=== PATIENT | male | born 1995 | race Caucasian/White ===

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

== ENCOUNTER 2017-01-13 11:57 | Observation (INO) | payer MEDICAID ==
[2017-01-13] MEDS ORDERED: NORMAL SALINE 1000 ML 1,000 ML IV ONE (12:27)
--- NOTE | 2017-01-13 12:28 | ER Document Report ---
ED Medical Screen (RME) - General Chief Complaint: Abscess Stated Complaint: POSSIBLE ABSCESS Time Seen by Provider: 01/13/17 12:24 Notes: Patient was sent from primary care physician's office for surgical consult. Per parents and patient he has a mass in the rectal area that is leaking pus. He is also had diarrhea and abdominal pain. He is also had generalized weakness and malaise. TRAVEL OUTSIDE OF THE [place] IN LAST 30 DAYS: No - Related Data Allergies/Adverse Reactions: No Known Allergies Allergy (Verified 01/13/17 12:26) Past Medical History - Past Medical History Cardiac Medical History: Denies: Hx Coronary Artery Disease, Hx Heart Attack, Hx Hypertension Pulmonary Medical History: Denies: Hx Asthma, Hx Bronchitis, Hx COPD, Hx Pneumonia Neurological Medical History: Denies: Hx Cerebrovascular Accident, Hx Seizures Renal/ Medical History: Denies: Hx Peritoneal Dialysis Musculoskeltal Medical History: Denies Hx Arthritis, Reports Hx Musculoskeletal Trauma - fractured clavicle 12/06/16 Traumatic Medical History: Reports: Hx Fractures - fractured clavicle 12/06/16 - Immunizations Immunizations up to date: Yes Hx Diphtheria, Pertussis, Tetanus Vaccination: Yes History of Influenza Vaccine for 12/2016 - 05/2017 Season: Yes Influenza Administration Date for 12/2016 - 05/2017 Season: 11/12/16 Physical Exam - Vital signs Vitals: Temp Pulse Resp BP Pulse Ox 98.3 F 120 H 20 128/81 H 97 01/13/17 12:09 01/13/17 12:09 01/13/17 12:09 01/13/17 12:09 01/13/17 12:09 Course - Vital Signs Vital signs: Temp Pulse Resp BP Pulse Ox 98.3 F 120 H 20 128/81 H 97 01/13/17 12:09 01/13/17 12:09 01/13/17 12:09 01/13/17 12:09 01/13/17 12:09
[2017-01-13 13:25] LABS: VENOUS BLOOD BASE EXCESS 0.8 mmol/L; VENOUS BLOOD HCO3 26.7 mmol/L (20-32); VENOUS BLOOD PCO2 46.5 mmHg (35-63); VENOUS BLOOD PH 7.38 (7.30-7.42)
[2017-01-13 13:29] LABS: ABSOLUTE BASOPHILS # (AUTO) 0.1 10^3/uL (0.0-0.2); ABSOLUTE EOSINOPHILS # (AUTO) 0.1 10^3/uL (0.0-0.6); ABSOLUTE LYMPHOCYTES (AUTO) 1.5 10^3/uL (0.5-4.7); ABSOLUTE MONOCYTES (AUTO) 1.7 10^3/uL (0.1-1.4); ABSOLUTE NEUT (AUTO) 12.6 10^3/uL (1.7-8.2); BASOPHILS % (AUTO) 0.4 % (0-2); EOSINOPHILS % (AUTO) 0.5 % (0-6); HEMATOCRIT 38.5 % (37.9-51.0); HEMOGLOBIN 12.8 g/dL (13.5-17.0); HGB HCT DIFFERENCE -0.1; LYMPHOCYTES % (AUTO) 9.4 % (13-45); MEAN CORPUSCULAR HEMOGLOBIN 25.2 pg (27.0-33.4); MEAN CORPUSCULAR HGB CONC 33.3 g/dL (32.0-36.0); MEAN CORPUSCULAR VOLUME 76 fl (80-97); MONOCYTES % (AUTO) 10.6 % (3-13); RED CELL DISTRIBUTION WIDTH 13.8 % (11.5-14.0); SEGMENTED NEUTROPHILS % (AUTO) 79.1 % (42-78); WHITE BLOOD COUNT 15.9 10^3/uL (4.0-10.5)
[2017-01-13] MEDS ORDERED: VANCOMYCIN HCL INJ 1000 MG VIAL IV ONE (13:30)
[2017-01-13] MEDS ORDERED: HYDROMORPHONE HCL INJ/PF 2 MG/ML AMPULE IV ONE (13:30)
[2017-01-13] MEDS ORDERED: PIPERACILLIN/TAZOBACTAM 4.5 GM VIAL IV ONE (13:30)
[2017-01-13] MEDS ORDERED: NORMAL SALINE 1000 ML 1,000 ML IV PRN (13:30)
--- NOTE | 2017-01-13 13:31 | ER Document Report ---
ED General - General Chief Complaint: Abscess Stated Complaint: POSSIBLE ABSCESS Time Seen by Provider: 01/13/17 12:24 Mode of Arrival: Ambulatory Information source: Patient Notes: 21-year-old male presents with 3-4 day duration of rectal pain. Patient was seen by primary care physician noted to have large amount drainage and was sent in for evaluation. Patient denies any fevers admits to decreased oral intake TRAVEL OUTSIDE OF THE [place] IN LAST 30 DAYS: No - HPI Onset: Last week Onset/Duration: Persistent Quality of pain: Achy Severity: Mild Pain Level: 1 Associated symptoms: None Exacerbated by: Denies Relieved by: Denies Similar symptoms previously: No Recently seen / treated by doctor: No - Related Data Allergies/Adverse Reactions: No Known Allergies Allergy (Verified 01/13/17 12:26) Home Medications: Current Home Medications No Home Medications 01/13/17 [History] Past Medical History - Social History Smoking Status: Never Smoker Cigarette use (# per day): No Chew tobacco use (# tins/day): No Smoking Education Provided: No Family History: Arthritis, CAD, COPD, DM, Hyperlipidemia, Hypertension, Malignancy. denies: CVA, Thyroid Disfunction Patient has suicidal ideation: No Patient has homicidal ideation: No - Past Medical History Cardiac Medical History: Denies: Hx Coronary Artery Disease, Hx Heart Attack, Hx Hypertension Pulmonary Medical History: Denies: Hx Asthma, Hx Bronchitis, Hx COPD, Hx Pneumonia Neurological Medical History: Denies: Hx Cerebrovascular Accident, Hx Seizures Renal/ Medical History: Denies: Hx Peritoneal Dialysis Musculoskeltal Medical History: Denies Hx Arthritis, Reports Hx Musculoskeletal Trauma - fractured clavicle 12/06/16 Traumatic Medical History: Reports: Hx Fractures - fractured clavicle 12/06/16 - Immunizations Immunizations up to date: Yes Hx Diphtheria, Pertussis, Tetanus Vaccination: Yes Review of Systems - Review of Systems Notes: REVIEW OF SYSTEMS: CONSTITUTIONAL : Denies fever, chills, or sweats. Denies recent illness. EENT: Denies eye, ear, throat, or mouth pain or symptoms. Denies nasal or sinus congestion or discharge. Denies throat, tongue, or mouth swelling or difficulty swallowing. CARDIOVASCULAR: Denies chest pain. Denies palpitations or racing or irregular heart beat. Denies ankle edema. RESPIRATORY: Denies cough, cold, or chest congestion. Denies shortness of breath, difficulty breathing, or wheezing. GASTROINTESTINAL: Denies abdominal pain or distention. Denies nausea, vomiting , or diarrhea. Denies blood in vomitus, stools, or per rectum. Denies black, tarry stools. Denies constipation. GENITOURINARY: Denies difficulty urinating, painful urination, burning, frequency, blood in urine, or discharge. MUSCULOSKELETAL: Denies back or neck pain or stiffness. Denies joint pain or swelling. SKIN: rectal pain HEMATOLOGIC : Denies easy bruising or bleeding. LYMPHATIC: Denies swollen, enlarged glands. NEUROLOGICAL: Denies confusion or altered mental status. Denies passing out or loss of consciousness. Denies dizziness or lightheadedness. Denies headache. Denies weakness or paralysis or loss of use of either side. Denies problems with gait or speech. Denies sensory loss, numbness, or tingling. Denies seizures. PSYCHIATRIC: Denies anxiety or stress. Denies depression, suicidal ideation, or homicidal ideation. ALL OTHER SYSTEMS REVIEWED AND NEGATIVE. Dictation was performed using [employer] voice recognition software PHYSICAL EXAMINATION: GENERAL: Well-appearing, well-nourished and in no acute distress. HEAD: Atraumatic, normocephalic. EYES: Pupils equal round and reactive to light, extraocular movements intact, sclera anicteric, conjunctiva are normal. ENT: Nares patent, oropharynx clear without exudates. Moist mucous membranes. NECK: Normal range of motion, supple without lymphadenopathy LUNGS: Breath sounds clear to auscultation bilaterally and equal. No wheezes rales or rhonchi. HEART: Regular rate and rhythm without murmurs ABDOMEN: Soft, nontender, nondistended abdomen. No guarding, no rebound. No masses appreciated. Musculoskeletal: Normal range of motion, no pitting or edema. No cyanosis. NEUROLOGICAL: Cranial nerves grossly intact. Normal speech, normal gait. Normal sensory, motor exams PSYCH: Normal mood, normal affect. SKIN perianal abscess noted wiht drainage Physical Exam - Vital signs Vitals: Temp Pulse Resp BP Pulse Ox 98.3 F 120 H 20 128/81 H 97 01/13/17 12:09 01/13/17 12:09 01/13/17 12:09 01/13/17 12:09 01/13/17 12:09 Course - Re-evaluation Re-evalutation: 01/13/17 15:27 Patient is noted to have a white count of 16, Dr. Odonnell graciously accepts this patient will take to the operating room for intervention - Vital Signs Vital signs: Temp Pulse Resp BP Pulse Ox 98.3 F 120 H 20 128/81 H 97 01/13/17 14:57 01/13/17 14:57 01/13/17 14:57 01/13/17 14:57 01/13/17 14:57 - Laboratory Result Diagrams: 01/13/17 12:51 01/13/17 12:51 Laboratory results interpreted by me: 01/13/17 01/13/17 01/13/17 12:33 12:51 12:51 WBC 15.9 H Hgb 12.8 L MCV 76 L MCH 25.2 L Plt Count 584 H Seg Neutrophils % 79.1 H Lymphocytes % 9.4 L Absolute Neutrophils 12.6 H Absolute Monocytes 1.7 H Direct Bilirubin 0.5 H ALT 79 H Albumin 3.6 L Urine Protein 100 H Urine Bilirubin SMALL H Urine Urobilinogen 4.0 H Discharge - Discharge Clinical Impression: Perianal abscess Condition: Stable Disposition: SAME DAY SURGERY Admitting Provider: Surgicalist Unit Admitted: Surgical Floor
[2017-01-13 13:41] LABS: ALANINE AMINOTRANSFERASE 79 U/L (10-40); ALBUMIN 3.6 g/dL (3.7-5.6); ALKALINE PHOSPHATASE 137 U/L (65-260); ANION GAP 16 (5-19); ASPARTATE AMINO TRANSFERASE 43 U/L (10-45); BILIRUBIN,DIRECT 0.5 mg/dL (0.0-0.4); BILIRUBIN,TOTAL 0.6 mg/dL (0.2-1.3); BLOOD UREA NITROGEN 9 mg/dL (7-20); CALCIUM 9.3 mg/dL (8.4-10.2); CARBON DIOXIDE 23 mmol/L (22-30); CHLORIDE 101 mmol/L (98-107); CREATININE RESULT 0.77 mg/dL (0.52-1.25); GLUCOSE 91 mg/dL (75-110); POTASSIUM 4.3 mmol/L (3.6-5.0); SODIUM 139.7 mmol/L (137-145); TOTAL PROTEIN 6.8 g/dL (6.3-8.2)
[2017-01-13 13:55] LABS: APPEARANCE,URINE SLIGHTLY-CLOUDY; BILIRUBIN,URINE SMALL (NEGATIVE); GLUCOSE, URINE NEGATIVE (NEGATIVE); KETONES,URINE NEGATIVE (NEGATIVE); LEUKOCYTE ESTERASE,URINE NEGATIVE (NEGATIVE); NITRITE,URINE NEGATIVE (NEGATIVE); PROTEIN,URINE 100 mg/dL (NEGATIVE); URINE SPECIFIC GRAVITY 1.028
[2017-01-13] MEDS ORDERED: ONDANSETRON HCL INJ/PF 4 MG/2 ML SDV ONE (15:41)
[2017-01-13] MEDS ORDERED: FENTANYL CITRATE INJ/PF 100 MCG/2 ML AMPUL ONE (16:01)
[2017-01-13] MEDS ORDERED: HYDROMORPHONE HCL INJ/PF 2 MG/ML AMPULE ONE (16:01)
[2017-01-13] MEDS ORDERED: MIDAZOLAM 2 MG/2 ML INJ ONE (16:01)
[2017-01-13] MEDS ORDERED: IBUPROFEN INJ 800 MG/8 ML VIAL IV ONE (16:02)
[2017-01-13] MEDS ORDERED: PROPOFOL INJ 200 MG/20 ML VIAL IV ONE (16:02)
[2017-01-13] MEDS ORDERED: EPHEDRINE SULFATE INJ 50 MG/1 ML AMPULE ONE (16:02)
[2017-01-13] MEDS ORDERED: BUPIVACAINE HCL 0.25 % INJ/PF (2.5 MG/1 ML) 30 ML VIAL ONE (16:03)
--- NOTE | 2017-01-13 16:07 | HISTORY AND PHYSICAL E ---
History and Physical NAME: WILLIAM EDWARD : 1995 AGE: 21Y ADMITTED: 01/13/2017 ROOM: CHIEF COMPLAINT: Perianal abscess. The patient is seen at the request of Dr. Morris. HISTORY OF PRESENTING ILLNESS: The patient is a 21-year-old male with a 4-day history of rectal pain, diarrhea, and drainage from his anus. The patient was seen at an outpatient facility and found to have an acute perianal abscess and was sent to the emergency department for further evaluation. The patient continued to have a significant amount of perianal drainage. He denies of trauma, previous abscess, or previous infection. PAST MEDICAL HISTORY: None. PAST SURGICAL HISTORY: Significant for right clavicular fracture repaired by Dr. Jalen Farfan, [facility], 12/2016. FAMILY HISTORY: Noncontributory. IMMUNIZATIONS: Up to date. ALLERGIES: None known. REVIEW OF SYSTEMS: Patient denies. GASTROINTESTINAL: The patient has no history of chronic gastrointestinal problems or diarrhea. PHYSICAL EXAMINATION: VITAL SIGNS: The patient is examined in the emergency department. Vital signs are stable, but the pulse is 115, blood pressure 128/81. GENERAL: The patient appears to be hydrated. HEENT: Eyes without icterus. NECK: No adenopathy. LUNGS: Diminished at the bases bilaterally. HEART: Without murmur or gallop. ABDOMEN: Soft. No peritoneal signs. No rigidity. RECTAL: The patient examined in the left lateral decubitus position, right side up. There is active purulent discharge from the perianal tissue. A linear radially oriented opening in the anterior position and a second linear opening radially in the right lateral position. The remainder of the physical examination is unremarkable. LABORATORY DATA: White blood cell count 15,900; hemoglobin of 12.8. Electrolytes within normal limits. IMPRESSION: 1. Acute perianal abscess, likely complex, in an otherwise healthy 21-year-old male. 2. Smoker. RECOMMENDATION: The patient needs admission, IV fluids, intravenous antibiotics, and a visit to the operating room for damage control, drainage, possible packing, possible seton placement. DICTATING PHYSICIAN: TIAN PHAM M.D. [id number] PHY#: [id number] ID: [id number] JOB#: [id number] ACCT: [id number] cc:Kenny DEMARCO MD
[2017-01-13] MEDS ORDERED: MEPERIDINE HCL/PF INJ 25 MG/1 ML DISP.SYRIN IV PRN (16:34)
[2017-01-13] MEDS ORDERED: DIPHENHYDRAMINE HCL 50 MG/ML VIAL IV PRN (16:34)
[2017-01-13] MEDS ORDERED: PROMETHAZINE HCL INJ 25 MG/1 ML VIAL IV PRN (16:34)
[2017-01-13] MEDS ORDERED: FENTANYL CITRATE INJ/PF 100 MCG/2 ML AMPUL IV PRN ×3 (16:34)
[2017-01-13] MEDS ORDERED: OXYCODONE-ACETAMINOPHEN 5-325 MG TABLET PO PRN (17:47)
[2017-01-13] MEDS: ONDANSETRON HCL INJ/PF 4 MG/2 ML SDV IV PRN (19:04)
[2017-01-13] MEDS: OXYCODONE-ACETAMINOPHEN 5-325 MG TABLET PO PRN (19:14)
[2017-01-13] MEDS: DOCUSATE SODIUM 100 MG CAPSULE PO SCH (19:18)
--- NOTE | 2017-01-13 19:47 | OPERATIVE REPORT E ---
Operative Report NAME: WILLIAM EDWARD : 1995 AGE: 21Y DATE OF SURGERY: 01/13/2017 ROOM: 415 PREOPERATIVE DIAGNOSIS: COMPLEX PERIANAL ABSCESS. POSTOPERATIVE DIAGNOSIS: COMPLEX PERIANAL ABSCESS WITH: 1. 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 2. LARGE PERIANAL ABSCESS EXTENDING FROM RIGHT LATERAL TO THE ANTERIOR LEFT POSITION. 3. POSTERIOR ANAL FISSURE, DEEP AND WIDE. OPERATION: 1. Examination under anesthesia. 2. Drainage, irrigation, debridement, and packing of large perianal abscess with placement of loop drain from the right lateral to the anterior position. 3. Fistulotomy of anterior superficial fistula. SURGEON: TIAN PHAM M.D. ANESTHESIA: General via endotracheal tube. COMPLICATIONS: None. ESTIMATED BLOOD LOSS: 30 mL. DRAINS: One loop Dana in the perianal skin. FINDINGS: See below. PROCEDURE: The patient was brought from the preop holding area to the main operating room where general anesthesia was induced. He was left in the supine position, frogleg, buttocks spread widely. Buttock and anal area were prepped and draped in sterile fashion. Surgical plan and surgical timeout were conducted. Findings were significant for a very hostile inflamed perineum. The patient had pus spontaneously draining from the mid anterior position and right lateral position. The drainage in the anterior position had a small hole, with surrounding pedunculated inflamed skin extending towards the anal verge. The opening in the right lateral position was very large, approximately 2 to 3 cm in diameter, all from chronic inflammation and drainage. I proceeded to use a blunt finger dissection and break up all the loculations between these 2 spontaneously draining sites and, in fact, they communicated with eachother through a subcutaneous tunnel along the patient's right lateral and right anterior positions. In fact, the infection extended past midline up towards the base of his left hemiscrotum. There appeared to be no extension of the abscess along the left posterior side or down towards the true midline posteriorly. We easily dilated up the anal canal to admit 2 index fingers and then placed a bullet anoscope into position. Findings were significant for previously unappreciated posterior fissure. This was a large chronic fissure extending from the perianal skin down towards the dentate line and approximately 1.5 cm wide and 3 cm long with exposure of the external sphincter muscle. There appeared to be no tracking here. I used a curet to debride some of the surrounding granulation tissue abutting the mucosal edge of this fissure. We rotated the opening in the anoscope to the anterior position and the previously identified abscess draining site in the mid anterior position was actually in communication with a fistula in ano, superficial, just deep in the anal canal beyond the anal verge. I therefore bluntly opened up this fistula tract creating a fistulotomy. I used a curet and scissors to debride the heaped-up granulation tissue and pedunculated skin so that we now had a clean crevice in the mid anterior 12 o'clock position. There was minimal if any sphincter disruption at this point. We irrigated out the previously described abscess cavity to the patient's right and midline, placed a large Dana loop drain between the 2 spontaneously draining sites previously described. This loop drain was placed superficial to the sphincter and had no connection with the anal canal. In summary, we drained the perianal abscess at 2 sites, placed a Henderson loop drain to keep these two areas open, and identified a fistulous tract anteriorly which was very superficial and performed a fistulotomy. Posteriorly an anal fissure was cleaned out and left open. At this point we felt the operation was complete. We did pack the abscess cavity with half-inch Iodoform packing. Cautery was used to control some mucosal and skin edge bleeding. At this point we felt the operation was complete. Sponge and needle counts were correct. Patient was awakened from anesthesia and taken to the Recovery Room in stable condition. DICTATING PHYSICIAN: TIAN PHAM M.D. [id number] PHY#: [id number] ID: [id number] JOB#: [id number] ACCT: [id number] cc:TIAN PHAM M.D. > MTDD
[2017-01-13] MEDS ORDERED: NICOTINE 14 MG/24 HR PATCH.TD24 TD ONE (22:00)
[2017-01-14] MEDS: OXYCODONE-ACETAMINOPHEN 5-325 MG TABLET PO PRN ×2 (05:32→10:36)
[2017-01-14] MEDS: DOCUSATE SODIUM 100 MG CAPSULE PO SCH ×2 (09:32→17:22)
[2017-01-14] MEDS: PIPERACILLIN SODIUM/TAZOBACTAM 3.375 GM in NORMAL SALINE 100 ML IV SCH ×2 (09:33→17:24)
[2017-01-14] MEDS: ONDANSETRON HCL INJ/PF 4 MG/2 ML SDV IV PRN (09:33)
[2017-01-14] MEDS: NICOTINE 14 MG/24 HR PATCH.TD24 TD SCH ×2 (09:33→17:34)
--- NOTE | 2017-01-14 11:50 | PDOC PROGRESS REPORT ---
Subjective Progress Note for:: 01/14/17 Subjective:: No complaints this morning Physical Exam Vital Signs: Temp Pulse Resp BP Pulse Ox 97.9 F 61 12 101/49 L 98 01/14/17 08:00 01/14/17 08:00 01/14/17 08:00 01/14/17 08:00 01/14/17 08:00 Intake & Output 01/13/17 01/14/17 01/15/17 06:59 06:59 06:59 Intake Total 681 Output Total 400 Balance 281 Exam: Awake, alert, oriented Lungs: Clear Cardiovascular: Regular rate Abdomen: Soft, nontender. Examination of the surgical wound reveals a Gregory drain which is in place. There is no cellulitis. The packing was removed. No purulent fluid was encountered. Assessment & Plan - Diagnosis (1) Perianal abscess Is this a current diagnosis for this admission?: Yes Plan: Postoperative day 1 status post incision and drainage of perianal abscess. He is doing well clinically. We will keep him in the hospital an additional day for pain control and antibiotics. He will need outpatient colonoscopic workup. He does have a family history of Crohn's disease. - Time Time Spent with patient: 15-24 minutes
[2017-01-14] MEDS: KETOROLAC TROMETHAMINE 10 MG TABLET PO PRN ×2 (16:25→22:14)
[2017-01-15] MEDS: PIPERACILLIN SODIUM/TAZOBACTAM 3.375 GM in NORMAL SALINE 100 ML IV SCH ×2 (02:09→09:25)
[2017-01-15] MEDS: DOCUSATE SODIUM 100 MG CAPSULE PO SCH (09:25)
[2017-01-15] MEDS: ONDANSETRON HCL INJ/PF 4 MG/2 ML SDV IV PRN (09:28)
[2017-01-15] MEDS ORDERED: NICOTINE 14 MG/24 HR PATCH.TD24 TD ONE (10:00)
[2017-01-15 14:34] VITALS: BP 130/77
[2017-01-15] MEDS: OXYCODONE-ACETAMINOPHEN 5-325 MG TABLET PO PRN (15:09)
[2017-01-16] MEDS ORDERED: NICOTINE 14 MG/24 HR PATCH.TD24 TD SCH (10:00)
== END 2017-01-15 15:15 | disposition home or self-care (01) ==
LOC: ER 11:57 → ASU 14:18 → ER 15:22 → 4N 18:12 → ER 18:24
PROVIDERS: ATTEND Surgery
PROC: 0J9B0ZZ Drainage of Perineum Subcutaneous Tissue and Fascia, Open Approach (ICD-10-PCS; 2017-01-13)
PROC: 0JBB0ZZ Excision of Perineum Subcutaneous Tissue and Fascia, Open Approach (ICD-10-PCS; principal; 2017-01-13 16:00)
DX: K61.0 Anal abscess (principal); F17.200 Nicotine dependence, unspecified, uncomplicated; R19.7 Diarrhea, unspecified; Z83.79 Family history of other diseases of the digestive system
CPT/HCPCS: 99284; 96361; 96374; 36415; 87040; 87086; 85025; 87088; 80053; 81001; 87186; 82803; 83605; 74177; 11042; 46270; J2250; J3490 ×5; J3010; J1170; J2405 ×3; J7030; J2704; J2543 ×3; 902; J1741

== ENCOUNTER → 2017-02-19 | Outpatient (CLI) | payer MEDICAID ==
--- NOTE | 2017-02-19 10:18 | RADIOLOGY REPORT (SQ) ---
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 TECHNIQUE: CT scan of the abdomen and pelvis performed using helical scanning technique without and with dynamic intravenous contrast injection. No oral contrast. Images reviewed with lung, soft tissu e, and bone windows. Reconstructed coronal and sagittal MPR images reviewed. Delayed images for evalu ation of the urinary system also acquired. All images stored on PACS. All CT scanners at this facility use dose modulation, iterative reconstruction, and/or weight based d osing when appropriate to reduce radiation dose to as low as reasonably achievable (ALARA). [facility]: Dose Right [facility]: CareDose [facility]: Dose Right [facility]: Teradose 4D [facility]: TapTalents CONTRAST TYPE AND DOSE: contrast/concentration: Isovue 370.00 mg/ml; Total Contrast Delivered: 46.0 ml; Total Saline Delivered: 76.0 ml RENAL FUNCTION: None required. The patient is less than 50 years old. RADIATION DOSE: CT Rad equipment meets quality standard of care and radiation dose reduction techniq ues were employed. CTDIvol: 4.8 - 34.5 mGy. DLP: 694 mGy-cm.. LIMITATIONS: None. FINDINGS: LOWER CHEST: No significant findings. No nodules or infiltrates. LIVER: Normal size. No masses. No dilated ducts. SPLEEN: Normal size. No focal lesions. PANCREAS: No masses. No significant calcifications. No adjacent inflammation or peripancreatic fluid collections. Pancreatic duct not dilated. GALLBLADDER: No identified stones by CT criteria. No inflammatory changes to suggest cholecystitis. ADRENAL GLANDS: No significant masses or asymmetry. RIGHT KIDNEY AND URETER: No solid masses. No significant calcifications. No hydronephrosis or hyd roureter. LEFT KIDNEY AND URETER: No solid masses. No significant calcifications. No hydronephrosis or hydr oureter. AORTA AND VESSELS: No aneurysm. No dissection. Renal arteries, SMA, celiac without stenosis. RETROPERITONEUM: No retroperitoneal adenopathy, hemorrhage or masses. BOWEL AND PERITONEAL CAVITY: No masses or inflammatory changes. No free fluid or peritoneal masses. APPENDIX: Normal. PELVIS: No mass. No free fluid. Normal bladder. ABDOMINAL WALL: No masses. No hernias. BONES: No significant or acute findings. OTHER: No other significant finding. IMPRESSION: No acute abnormality in the abdomen or pelvis. TECHNICAL DOCUMENTATION: JOB ID: [id number] Quality ID # [id number]: Final reports with documentation of one or more dose reduction techniques (e.g., Au tomated exposure control, adjustment of the mA and/or kV according to patient size, use of iterative reconstruction technique) 2010 [employer]- All Rights Reserved
== END ==
LOC: RAD 08:09
PROVIDERS: ATTEND Internal Medicine Gastroenterology
DX: K50.814 Crohn's disease of both small and large intestine with abscess (principal); R63.4 Abnormal weight loss
CPT/HCPCS: 74177

== ENCOUNTER → 2017-04-07 | Outpatient (CLI) | payer MEDICAID ==
[2017-04-07 17:50] LABS: HEMATOCRIT 41.3 % (37.9-51.0); HEMOGLOBIN 13.7 g/dL (13.5-17.0); MEAN CORPUSCULAR HEMOGLOBIN 26.9 pg (27.0-33.4); MEAN CORPUSCULAR HGB CONC 33.1 g/dL (32.0-36.0); MEAN CORPUSCULAR VOLUME 81 fl (80-97); PLATELET COUNT 525 10^3/uL (150-450); RED BLOOD COUNT 5.08 10^6/uL (4.35-5.55); RED CELL DISTRIBUTION WIDTH 19.7 % (11.5-14.0)
[2017-04-07 18:01] LABS: ALANINE AMINOTRANSFERASE 33 U/L (21-72); ALBUMIN 4.3 g/dL (3.5-5.0); ALKALINE PHOSPHATASE 93 U/L (38-126); ANION GAP 14 (5-19); ASPARTATE AMINO TRANSFERASE 18 U/L (17-59); BILIRUBIN,DIRECT 0.2 mg/dL (0.0-0.4); BILIRUBIN,TOTAL 0.3 mg/dL (0.2-1.3); BLOOD UREA NITROGEN 11 mg/dL (7-20); C-REACTIVE PROTEIN 62.9 mg/L (<10.0); CALCIUM 10.4 mg/dL (8.4-10.2); CARBON DIOXIDE 25 mmol/L (22-30); CHLORIDE 103 mmol/L (98-107); GLUCOSE 101 mg/dL (75-110); SODIUM 141.7 mmol/L (137-145); TOTAL PROTEIN 7.4 g/dL (6.3-8.2)
== END ==
LOC: OD 16:59
PROVIDERS: ATTEND Physician Assistant Surgical
DX: K50.10 Crohn's disease of large intestine without complications (principal); Z79.899 Other long term (current) drug therapy
CPT/HCPCS: 36415; 80053; 85027; 86140

== ENCOUNTER → 2017-04-21 | Outpatient (CLI) | payer MEDICAID ==
--- NOTE | 2017-04-21 17:20 | RADIOLOGY REPORT (SQ) ---
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 EXAM PARAMETERS: NUMBER OF VIEWS: two views TECHNIQUE: Digital Frontal and Lateral radiographic views of the chest acquired. RADIATION DOSE: NA LIMITATIONS: none FINDINGS: LUNGS AND PLEURA: No opacities, masses or pneumothorax. No pleural effusion. MEDIASTINUM AND HILAR STRUCTURES: No masses or contour abnormalities. HEART AND VASCULAR STRUCTURES: Heart normal size. No evidence for failure. BONES: No acute findings. HARDWARE: Right clavicle. OTHER: No other significant finding. IMPRESSION: NO SIGNIFICANT RADIOGRAPHIC FINDING IN THE CHEST. TECHNICAL DOCUMENTATION: JOB ID: [id number] [employer] All Rights Reserved
[2017-04-22 06:39] LABS: HEPATITS B SURFACE ANTIGEN Negative (Negative)
[2017-04-22 07:15] LABS: HEPATITIS B CORE AB TOT Negative (Negative); HEPATITIS B SURFACE AB QUAL Non Reactive (.)
== END ==
LOC: OD 16:11
PROVIDERS: ATTEND Internal Medicine Gastroenterology
DX: K50.814 Crohn's disease of both small and large intestine with abscess (principal); Z79.899 Other long term (current) drug therapy
CPT/HCPCS: 36415; 71046; 82172; 82247; 82977; 83010; 83883; 84460; 86480; 86701; 86704; 86706; 87340